=== PATIENT | female | born 1970 | race Caucasian/White ===

== ENCOUNTER 2017-12-03 05:13 | Day surgery (SDC) | payer BC ==
[~2017-12-03] VITALS: Ht 167.6 cm; Wt 110.7 kg
[~2017-12-03 05:13] MED LIST: HYDROCHLOROTHIA25 MG PO; PRILOSEC20 MG PO; SYNTHROID125 MCG PO; ZOCOR20 MG PO
[2017-12-03 06:03] VITALS: BP 136/80
[2017-12-03 10:52] VITALS: BP 142/82
[2017-12-03 11:52] VITALS: BP 134/82
[2017-12-03 12:30] VITALS: BP 144/84
== END 2017-12-03 12:40 | disposition home or self-care (01) ==
LOC: SDC 05:13
PROC: 08B43ZZ Excision of Right Vitreous, Percutaneous Approach (ICD-10-PCS; principal; 2017-12-03)
PROC: 08QE3ZZ Repair Right Retina, Percutaneous Approach (ICD-10-PCS; principal; 2017-12-03)
DX: H33.021 Retinal detachment with multiple breaks, right eye (principal); H43.11 Vitreous hemorrhage, right eye; K21.9 Gastro-esophageal reflux disease without esophagitis; I10 Essential (primary) hypertension; E03.9 Hypothyroidism, unspecified; E78.00 Pure hypercholesterolemia, unspecified; Z80.3 Family history of malignant neoplasm of breast; Z82.49 Family history of ischemic heart disease and other diseases of the circulatory system; Z80.52 Family history of malignant neoplasm of bladder; Z83.3 Family history of diabetes mellitus; Z88.0 Allergy status to penicillin; Z88.1 Allergy status to other antibiotic agents; Z88.8 Allergy status to other drugs, medicaments and biological substances; Z79.82 Long term (current) use of aspirin
CPT/HCPCS: J0330; J0690; J0713; J1100; J2250; J2405; J2765; J3010; J3300